=== PATIENT | male | born 1990 | race Caucasian/White ===

== ENCOUNTER 2021-10-06 09:55 | Emergency (ER) | payer BC, SELFPAY ==
[2021-10-06 10:26] VITALS: BMI 30.1
[2021-10-06] MEDS: SODIUM CHLORIDE 0.9% 1,000 ML 1000 ML IV (11:21)
[2021-10-06] MEDS: ONDANSETRON 4 MG/2 ML INJ IV (11:22)
[2021-10-06] MEDS: KETOROLAC 30 MG/ML VIAL IV (11:22)
[2021-10-06 11:28] LABS: Add Manual Diff / Slide Review NO; Basophils Absolute Auto 0 /uL (0-100); Basophils Percent Auto 0.2 % (0-2); Eosinophils Absolute Auto 0 /uL (0-450); Eosinophils Percent Auto 0.1 % (2-4); Hematocrit 42.6 % (41-53); Hemoglobin 14.5 g/dL (13.5-17.5); Lymphocytes Absolute Auto 300 /uL (1100-4500); Lymphocytes Percent Auto 2.5 % (25-40); Mean Corpuscular Hemoglobin 26.5 PG (26-34); Mean Corpuscular Volume 77.9 fL (80-100); Monocytes Absolute Auto 600 /uL (0-900); Monocytes Percent Auto 4.1 % (3-14); Neutrophils Absolute Auto 12600 /uL (1500-7000); Neutrophils Percent Auto 93.1 % (50-75); Platelet Count 258 X10^3/uL (150-400); Red Blood Cell Count 5.47 X10^6/uL (4.5-5.9); Red Cell Distribution Width 12.8 % (11.6-14.8); White Blood Cell Count 13.6 X10^3/uL (4.5-11.0)
[2021-10-06 11:32] LABS: Alanine Aminotransferase 23 IU/L (<50); Albumin 4.4 g/dL (3.5-5.0); Albumin Globulin Ratio 1.5 (1.0-2.8); Alkaline Phosphatase 68 U/L (38-126); Aspartate Aminotransferase 30 IU/L (17-59); BUN Creatinine Ratio 20.9 (6-22); Bilirubin Total 0.6 mg/dL (0.2-1.3); Blood Urea Nitrogen 19 mg/dL (9-20); Calcium 8.7 mg/dL (8.4-10.2); Carbon Dioxide 25 mmol/L (22-32); Chloride 105 mmol/L (98-107); Estimated Glomerular Filt Rate > 60 mL/min (>60); Globulin 2.9 g/dL (1.7-4.1); Glucose 126 mg/dL (70-100); HEMOLYSIS < 15 (0-50); Lipase 49 U/L (23-300); Potassium 4.3 mmol/L (3.4-5.1); Sodium 137 mmol/L (137-145); Total Protein 7.3 g/dL (6.3-8.2)
[2021-10-06 11:51] LABS: COVID19 -Nasal RAPID POSITIVE (Negative)
--- NOTE | 2021-10-06 13:51 | ED_ITS ---
HPI - Abdominal Pain <Grupo Velarde PA-C - Last Filed: 10/06/21 20:45> General Chief Complaint: Abdominal Pain Stated Complaint: d/n/v abd pain x 1 day Time Seen by Provider: 10/06/21 11:50 Source: patient Mode of arrival: Family Vehicle History of Present Illness HPI narrative: Patient is 22-year-old male who presents to the emergency room today with complaint of nausea/vomiting and diarrhea that started last night about 10:00 a.m.. Admits to eating out and having seafood at a cold bar at vomiting and diarrhea started about 10. Admits that the vomiting continued to last for about every 10 minutes and lasted until he arrived at the emergency room and received an IV and anti nausea medications. Diarrhea also started around 10 but was not as frequent as the vomiting last bout of diarrhea was about 10:00 a.m. this morning. Admits to being diagnosed with COVID about 3 weeks ago and quarantine for about 2 weeks before returning to work. Not had COVID test since that time. Denies any shortness of breath chest pain fever or chills. Associated back pain and headache that he attributes to the extended time of vomiting and diarrhea. States he feels a lot better now. Related Data Home Medications Medication Instructions Recorded Confirmed METHYLPHENIDATE HCL (Concerta) 54 mg PO Q DAY ##0 07/02/09 Previous Rx's Medication Instructions Recorded ondansetron 4 mg disintegrating 4 mg PO Q8H #10 tabs 10/06/21 tablet Allergies Allergy/AdvReac Type Severity Reaction Status Date / Time No Known Drug Allergies Allergy Verified 10/06/21 10:33 Review of Systems <Grupo Velarde PA-C - Last Filed: 10/06/21 20:45> Review of Systems Narrative: R.O.S.: General: No fever, chills or fatigue. Cardiovascular: No chest pain or palpitations Respiratory: No S.O.B. HEENT: No congestion, ear pain, rhinorrhea, sore throat or tinnitus Gastrointestinal: nausea/vomiting and diarrhea Skin: No rash or associated abnormalities Musculoskeletal: No pain in muscles or joints, no limitation of range of motion, no paresthesia or numbness. ?? Neurological: Awake, alert and in not apparent distress. No Headaches, changes in vision or other related neurological concerns. Patient History <ANITA Amin Last Filed: 10/06/21 20:45> Social History Smoking Status: Former smoker Smoking Status: Former smoker tobacco type: cigarettes alcohol intake frequency: 0-2 drinks per day Substance Use Type: does not use Exam <Grupo Velarde PA-C - Last Filed: 10/06/21 20:45> Narrative Exam Narrative: Physical Exam: ? General: normal appearance, well developed, well nourished, alert, and awake. Not in acute distress. ? Head: Normocephalic, no lesions. Chest: Lungs CTAB, no rales, rhonchi or wheezes. ?? Heart: RRR, no murmurs, rubs or gallops. Eyes: PERRLA, EOM's full, conjunctivae clear. ? Neuro: Physiological, no localizing findings, CN3-12 intact. ?? Extremities: Warm, well perfused, FROM, no deformities, no edema. ?? Skin: Normal, no rashes, no lesions noted. ?? PSYCHIATRIC: The mood is good, no blunted affect. Speech is clear. Thought process is linear, thought content is appropriate. The voice is without significant inflection. Gastrointestinal: Soft; NT; ND; Pos BS with Neg. rebound tenderness. No scars or major deformities noted on Visual Inspection. Initial Vital Signs Initial Vital Signs: Vital Signs Temperature 98.9 F 10/06/21 14:23 Pulse Rate 87 10/06/21 14:23 Respiratory Rate 18 10/06/21 14:23 Blood Pressure 108/53 L 10/06/21 14:23 Pulse Oximetry 97 10/06/21 14:23 Oxygen Delivery Method 10/06/21 14:23 <Ella Irizarry DO - Last Filed: 10/12/21 08:11> Initial Vital Signs Initial Vital Signs: Vital Signs Temperature 98.9 F 10/06/21 14:23 Pulse Rate 87 10/06/21 14:23 Respiratory Rate 18 10/06/21 14:23 Blood Pressure 108/53 L 10/06/21 14:23 Pulse Oximetry 97 10/06/21 14:23 Oxygen Delivery Method 10/06/21 14:23 Course <Grupo Velarde PA-C - Last Filed: 10/06/21 20:45> Orders Ordered: Discontinued Medications Acetaminophen (Acetaminophen 325 Mg Tablet) 975 mg PO NOW ONE Stop: 10/06/21 15:04 Last Admin: 10/06/21 15:18 Dose: 975 mg Documented By: RL Sodium Chloride (Normal Saline 0.9%) 1,000 mls @ 1,000 mls/hr IV BOLUS ONE Stop: 10/06/21 11:32 Last Infusion: 10/06/21 15:29 Dose: 0 mls/hr Documented By: Admin: 10/06/21 11:21 Dose: 1,000 mls/hr Documented By: AT Ketorolac Tromethamine (Ketorolac 30 Mg/Ml Vial) 30 mg IV NOW ONE Stop: 10/06/21 11:18 Last Admin: 10/06/21 11:22 Dose: 30 mg Documented By: AT Ondansetron HCl (Ondansetron 4 Mg/2 Ml Inj) 4 mg IV NOW ONE Stop: 10/06/21 10:34 Last Admin: 10/06/21 11:22 Dose: 4 mg Documented By: AT Vital Signs Vital signs: Vital Signs - 8 hr 10/06/21 14:23 Temperature 98.9 F Pulse Rate 87 Respiratory Rate 18 Blood Pressure 108/53 L Pulse Oximetry 97 Oxygen Delivery Method Room Air <Ella Irizarry DO - Last Filed: 10/12/21 08:11> Orders Ordered: Discontinued Medications Acetaminophen (Acetaminophen 325 Mg Tablet) 975 mg PO NOW ONE Stop: 10/06/21 15:04 Last Admin: 10/06/21 15:18 Dose: 975 mg Documented By: RL Sodium Chloride (Normal Saline 0.9%) 1,000 mls @ 1,000 mls/hr IV BOLUS ONE Stop: 10/06/21 11:32 Last Infusion: 10/06/21 15:29 Dose: 0 mls/hr Documented By: Admin: 10/06/21 11:21 Dose: 1,000 mls/hr Documented By: AT Ketorolac Tromethamine (Ketorolac 30 Mg/Ml Vial) 30 mg IV NOW ONE Stop: 10/06/21 11:18 Last Admin: 10/06/21 11:22 Dose: 30 mg Documented By: AT Ondansetron HCl (Ondansetron 4 Mg/2 Ml Inj) 4 mg IV NOW ONE Stop: 10/06/21 10:34 Last Admin: 10/06/21 11:22 Dose: 4 mg Documented By: AT Vital Signs Vital signs: Vital Signs - 8 hr 10/06/21 14:23 Temperature 98.9 F Pulse Rate 87 Respiratory Rate 18 Blood Pressure 108/53 L Pulse Oximetry 97 Oxygen Delivery Method Room Air MDM - Abdominal Pain <Grupo Velarde PA-C - Last Filed: 10/06/21 20:45> Lab Data Result diagrams: 10/06/21 11:12 10/06/21 11:12 Labs: Lab Results 10/06/21 10/06/21 10/06/21 Range/Units 11:12 11:12 11:27 WBC 13.6 H (4.5-11.0) X10^3/uL RBC 5.47 (4.5-5.9) X10^6/uL Hgb 14.5 (13.5-17.5) g/dL Hct 42.6 (41-53) % MCV 77.9 L (80-100) fL MCH 26.5 (26-34) PG MCHC 34.0 (30-36) % RDW 12.8 (11.6-14.8) % Plt Count 258 (150-400) X10^3/uL Neut % (Auto) 93.1 H (50-75) % Lymph % (Auto) 2.5 L (25-40) % Merrick % (Auto) 4.1 (3-14) % Eos % (Auto) 0.1 L (2-4) % Baso % (Auto) 0.2 (0-2) % Neut # (Auto) 90068 H (1005-0229) /uL Lymph # (Auto) 300 L (0689-9738) /uL Merrick # (Auto) 600 (0-900) /uL Eos # (Auto) 0 (0-450) /uL Baso # (Auto) 0 (0-100) /uL Sodium 137 (137-145) mmol/L Potassium 4.3 (3.4-5.1) mmol/L Chloride 105 (98-107) mmol/L Carbon Dioxide 25 (22-32) mmol/L BUN 19 (9-20) mg/dL Creatinine 0.91 (0.66-1.25) mg/dL Estimated GFR > 60 (>60) mL/min BUN/Creatinine Ratio 20.9 (6-22) Glucose 126 H (70-100) mg/dL Calcium 8.7 (8.4-10.2) mg/dL Total Bilirubin 0.6 (0.2-1.3) mg/dL AST 30 (17-59) IU/L ALT 23 (<50) IU/L Alkaline Phosphatase 68 (38-126) U/L Total Protein 7.3 (6.3-8.2) g/dL Albumin 4.4 (3.5-5.0) g/dL Globulin 2.9 (1.7-4.1) g/dL Albumin/Globulin Ratio 1.5 (1.0-2.8) Lipase 49 (23-300) U/L SARS-CoV-2 (PCR) Positive H (Negative) MDM Narrative Medical decision making narrative: Patient is a 22-year-old male who presents to the emergency room today with complaint of nausea vomiting and diarrhea this started about 10:00 p.m. last night after eating seafood VIII p.m.. Patient admits to having COVID about 3 weeks ago and his COVID test at this visit was positive. Labs reveal a slightly elevated white blood cell count. Urinalysis has been ordered and results are negative. Patient was issued prescription for nausea and provider discussed potentially emergent concerns regarding infection with the patient. Patient advised to return to the emergency room should any emergent concerns arise. Patient advised to contact his PCP should any nonemergent concerns arise. Lisa todd agrees with plan <Ella Irizarry, DO - Last Filed: 10/12/21 08:11> Lab Data Labs: Lab Results 10/06/21 10/06/21 10/06/21 Range/Units 11:12 11:12 11:27 WBC 13.6 H (4.5-11.0) X10^3/uL RBC 5.47 (4.5-5.9) X10^6/uL Hgb 14.5 (13.5-17.5) g/dL Hct 42.6 (41-53) % MCV 77.9 L (80-100) fL MCH 26.5 (26-34) PG MCHC 34.0 (30-36) % RDW 12.8 (11.6-14.8) % Plt Count 258 (150-400) X10^3/uL Neut % (Auto) 93.1 H (50-75) % Lymph % (Auto) 2.5 L (25-40) % Merrick % (Auto) 4.1 (3-14) % Eos % (Auto) 0.1 L (2-4) % Baso % (Auto) 0.2 (0-2) % Neut # (Auto) 18262 H (1149-7712) /uL Lymph # (Auto) 300 L (5790-7043) /uL Merrick # (Auto) 600 (0-900) /uL Eos # (Auto) 0 (0-450) /uL Baso # (Auto) 0 (0-100) /uL Sodium 137 (137-145) mmol/L Potassium 4.3 (3.4-5.1) mmol/L Chloride 105 (98-107) mmol/L Carbon Dioxide 25 (22-32) mmol/L BUN 19 (9-20) mg/dL Creatinine 0.91 (0.66-1.25) mg/dL Estimated GFR > 60 (>60) mL/min BUN/Creatinine Ratio 20.9 (6-22) Glucose 126 H (70-100) mg/dL Calcium 8.7 (8.4-10.2) mg/dL Total Bilirubin 0.6 (0.2-1.3) mg/dL AST 30 (17-59) IU/L ALT 23 (<50) IU/L Alkaline Phosphatase 68 (38-126) U/L Total Protein 7.3 (6.3-8.2) g/dL Albumin 4.4 (3.5-5.0) g/dL Globulin 2.9 (1.7-4.1) g/dL Albumin/Globulin Ratio 1.5 (1.0-2.8) Lipase 49 (23-300) U/L SARS-CoV-2 (PCR) Positive H (Negative) Discharge Plan Departure Patient Disposition: Home Clinical Impression: Nausea vomiting and diarrhea, COVID-19 Instructions: Diarrhea, Nausea and Vomiting-Adult Activity Restrictions/Additional Instructions: *You have been diagnosed with nausea, vomiting, diarrhea, COVID. I have given you the prescription for your and anti nausea medications please use as needed for nausea. As we discussed you have a slight increase in your white count. This could be related to COVID or could be a mild elevation given your current bout of food poisoning. As we discussed I suggest she return to the emergency room should any emergent concerns arise. [ ] *What to do: *Please continue to take your regular medications as directed. [ ] New medication prescriptions sent to your pharmacy: [ ] [x] New medication written as a paper prescription [ ] No new medications given *Please follow up with your primary care provider in 2-3 days, call for an appointment. Let them know you were seen in the Emergency Department and that we ask that you be seen in follow up. We will electronically transmit a record of today's note if your PCP is in our system *If you do not have a primary care provider please contact the [facility] Resource line at [phone]. They will ask some questions about your medical history and help get you set up with a doctor in the community. *Return to Emergency Department if you should have any new, worsening or concerning symptoms, such as [fever greater than 101 F, shaking chills, worsening pain, persistent vomiting or other bothersome symptoms] Prescriptions: New ondansetron 4 mg tablet,disintegrating 4 mg PO Q8H Qty: 10 0RF No Action METHYLPHENIDATE HCL (Concerta) 54 mg PO Q DAY Qty: 0 Visit Report Forms: Patient Portal/API <Ella Irizarry DO - Last Filed: 10/12/21 08:11> Cosign ED Attending Marshaature Attestation: I was immediately available in the department for consultation. Documentation has been reviewed.
[2021-10-06 14:23] VITALS: BP 108/53; PULSE 87; RESP 18; TEMP 37.2; O2SAT 97
[2021-10-06] MEDS: ACETAMINOPHEN 325 MG TABLET 975 MG PO (15:18)
== END 2021-10-06 15:46 | disposition home or self-care (01) ==
PROVIDERS: Emergency Medicine; Emergency Provider Physician Assistant; Family Provider Emergency Medicine
DX: U07.1 COVID-19 (principal); R11.2 Nausea with vomiting, unspecified; R19.7 Diarrhea, unspecified
CPT/HCPCS: 36415; 80053; 83690; 85025; 87635; 96361; 96374; 96375; 99284; C9803; J1885; J2405